=== PATIENT | female | born 1995 | race Caucasian/White ===

== ENCOUNTER 2022-05-15 19:32 | Emergency (ER) | payer OTHER ==
[~2022-05-15] VITALS: Ht 162.6 cm; Wt 86.4 kg
[2022-05-15 19:50] VITALS: PULSE 89; TEMP 98.3
[2022-05-15 20:40] VITALS: BP 151/98
== END 2022-05-15 20:51 | disposition home or self-care (01) ==
LOC: COL.ER 19:32
DX: S91.115A Laceration without foreign body of left lesser toe(s) without damage to nail, initial encounter (principal); Z23 Encounter for immunization; W26.8XXA Contact with other sharp object(s), not elsewhere classified, initial encounter; Y92.009 Unspecified place in unspecified non-institutional (private) residence as the place of occurrence of the external cause